=== PATIENT | male | born 2000 | race African-American/Black ===

== ENCOUNTER 2023-02-16 23:48 | Emergency (ER) | payer MEDICAID ==
[~2023-02-16] VITALS: Ht 188 cm; Wt 81.4 kg
[2023-02-16 23:52] VITALS: BP 120/86
== END 2023-02-17 02:50 | disposition home or self-care (01) ==
LOC: ER 23:50
DX: M25.571 Pain in right ankle and joints of right foot (principal); M25.572 Pain in left ankle and joints of left foot; R60.0 Localized edema
CPT/HCPCS: 82948; 99283